=== PATIENT | female | born 1960 | race Caucasian/White ===

== ENCOUNTER 2025-01-12 18:30 | Emergency (ER) | payer BC, SELFPAY ==
[2025-01-12 19:28] VITALS: BP 178/94; PULSE 77; RESP 16; TEMP 36.9; O2SAT 96; BMI 33.6
--- NOTE | 2025-01-12 19:44 | EKG_ITS ---
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
--- NOTE | 2025-01-12 19:44 | XR_ITS ---
EXAMINATION: PA lateral chest 2 views TECHNIQUE: Upright PA lateral chest 2 views Date and time: January 12, 20252005 hours INDICATIONS: Chest pain today. FINDINGS: Normal heart size Lungs are clear. Osseous structures are demineralized IMPRESSION: No active disease
--- NOTE | 2025-01-12 19:54 | EDNOTE_ITS ---
ED Headache RME/HPI General Chief Complaint: Headache Stated Complaint: HEADACHE, DIZZINESS, FEEL FAINT Time Seen by Provider: 01/12/25 20:07 Arrival date/time: 01/12/25 18:30 RME / HPI RME / HPI Narrative: CC: Dizziness and Feeling hot Patient is 64-year-old female with a past medical history of hyperlipidemia and paroxysmal SVT who is currently taking metoprolol succinate 25 twice daily (?) who presented to the emergency room via private vehicle with a chief complaint of headaches and dizziness. Patient stated hot feeling starts at the epigastric region and flushing sensation runs up to her head causing throbbing headache that is at the temporal region bilaterally. Patient denied history of hypertension. Patient denied history of MA. Father at age 45 secondary to heart attack. Patient states blood pressure typically runs near 90/60 at home. When burning sensation occurs, associated symptom is also feeling of dizziness that worsens with changes in position. Patient is concerned for benign paroxysmal positional vertigo but no formal diagnosis has ever been done. Denied history of stroke. Denies seizure-like activity. Denied loss of consciousness or head trauma. Patient already went through menopa use. CBC CMP TSH EKG troponin Related Data Previous Rx's ?Medication ?Instructions ?Recorded naproxen 250 mg tablet 250 mg PO BID PRN pain 7 day s #14 01/12/25 tabs Allergies Allergy/AdvReac Type Severity Reaction Status Date / Time NKA Allergy Unknown Uncoded 01/12/25 18:32 Review of Systems Review of Systems Narrative Review of Systems: General appearance: NO weight change, NO fatigue, NO weakness, NO fever, NO chills, NO night sweats, No cough Skin: NO rash, NO itching, NO sores, NO moles HEENT: NO Trauma, NO nausea, NO vomiting, NO visual changes, NO blurry vision, NO double vision, NO tinnitus, NO vertigo, NO ear discharge, NO rhinorrhea, NO stuffiness, NO sneezing, NO allergy, NO epistaxis. NO Hoarseness, NO sore t hroat, NO swollen neck. Cardiac: Yes Palpitations, NO dyspnea on exertion, NO orthopnea, NO paroxysmal nocturnal dyspnea, NO edema, CHEST sensation that is described at hot feeling. Respiratory: NO Shortness of Breath, NO Wheezing, NO Cough, NO Sputum, NO hemoptysis GI:NO appetite, Yes nausea, NO vomiting, NO dysphagia, NO changes in bowel frequency, NO stool color, NO diarrhea, NO constipation, NO hemetemesis, NO hemorrhoids, NO melena, NO hematechezia, NO abdominal pain, NO jaundice Renal: NO frequency, NO hesitancy, NO urgency, NO hematuria, NO nocturia, NO incontinence MSK: NO muscle weakness, NO gout, NO arthritis, NO muscle stiffness Neuro: NO headaches, NO tremors, NO weakness, NO paralysis, NO seizures, NO loss of consciousness, NO numbness. Hem: NO anemia, NO easy bruising/bleeding, NO petechiae, NO purpura Endo: NO heat/cold intolerance, NO excessive sweating, NO polyuria, NO polydipsia, NO polyphagia, NO thyroid problems, NO diabetes Pysch: NO mood, NO anxiety, NO depression ED Exam Narrative Physical exam: General Appearance: Alert & Oriented X3, well-nourished female who is lying in bed in no distress HEENT: Skull symmetrical and atraumatic. Conjunctivae pink and moist. Pupils equal, round, reactive to light and accommodation (PERRL). External ear without lesion or discharge. Left ear, tympanic membrane noted to have increased opacity , Straight, nares patient, mucosa pink, no discharge. Cardio: Normal Rate and Rhythm with S1 and S2 heart sounds. No murmurs or extra heart sounds auscultated. No bruits on carotid auscultation. No peripheral edema or cyanosis. Lungs: Symmetric with good expansion. Chest and back non-tender. Breath sounds vesicular without crackles, wheezing or rhonchi Abdomen: Non-tender, Non-distended, Normal Reactive Bowel Sounds Neuro: Alert, cooperative, oriented to person, place, and time. Speech clear. CN grossly intact. Upper motor strength 5/5 and Lower motor strength 5/5. Sensation intact. Course Course Course Narrative: CBC CMP TSH Troponin EKG Orthostatic vitals Quality Measures none Orders Category Date Time Status [employer] Q4H START 00 Care 01/12/25 19:45 Active EKG (ED ONLY) *Do not use* NOW Care 01/12/25 19:44 Completed Orthostatic Vitals X1 Care 01/12/25 19:45 Active EKG (ED Only) Stat Exams 01/12/25 19:44 Draft XR chest 2V Stat Exams 01/12/25 19:44 Taken Alcohol, Urine Stat Lab 01/12/25 20:11 Completed CBC Stat Lab 01/12/25 19:50 Completed Comprehensive Metabolic Panel Stat Lab 01/12/25 19:50 Completed Drug Screen,Urine Stat Lab 01/12/25 20:11 Completed Magnesium Stat Lab 01/12/25 19:50 Completed Partial Thromboplastin Time Stat Lab 01/12/25 19:50 Completed Prothrombin Time with INR Stat Lab 01/12/25 19:50 Completed TSH [Thyroid Stimulating Hormone] Stat Lab 01/12/25 19:50 Completed Troponin I Stat Lab 01/12/25 19:50 Completed Urinalysis, C/S if Indicated Stat Lab 01/12/25 20:11 Completed Ketorolac Inj [Toradol Inj] Med 01/12/25 19:47 Discontinued 30 mg IM X1 ONE Losartan [Cozaar] Med 01/12/25 19:50 Discontinued 25 mg PO X1 ONE Ondansetron Odt [Zofran Odt] Med 01/12/25 19:46 Discontinued 4 mg PO X1 ONE Vital Signs Vital signs: Vital Signs Temperature 98.4 F 01/12/25 19:28 Pulse Rate 77 01/12/25 19:28 Respiratory Rate 16 01/12/25 19:28 Blood Pressure 178/94 H 01/12/25 19:28 Pulse Oximetry (%) 96 01/12/25 19:28 Oxygen Delivery Method Room Air 01/12/25 19:28 Headache Patient data External records reviewed:: [facility] previous records Clinical information provided by:: patient Social determinants that could affect healthcare access:: housing Patient has the following chronic illnesses:: hx of STV and HLD How is presenting disease/condition affected by chronic disease/condition?: uneffected by Evaluation data The following diagnostics were reviewed and interpreted by me:: lab results, radiology exam(s) and EKG tracing(s) Lab and/or radiology exams considered but not ordered:: None Interpretation Summary: Patient presented with symptoms of flushing that starts at epigastric region and moves up to chest and head who stated these episodes come and go with changes in position, including sitting up and laying down. Orthostatic negative. Mild Leukocytosis, likely reactive as UA is negative and chest x-ray is unremarkable. EKG, no ST elevation. Troponin negative. Concern for vasovagal syncope. Medications / Prescriptions Medications or Prescriptions considered but not ordered:: None Medication administrations:: Medication Administration History Discontinued Medications Ketorolac Tromethamine (Ketorolac Inj 30 Mg/Ml Vial) 30 mg IM X1 ONE Stop: 01/12/25 19:48 Last Admin: 01/12/25 19:57 Dose: 30 mg Documented By: SOPHIA Losartan Potassium (Losartan Potassium 25 Mg Tablet) 25 mg PO X1 ONE Stop: 01/12/25 19:51 Last Admin: 01/12/25 19:58 Dose: Not Given Documented By: SOPHIA Non-Admin Reason: Per Protocol Comments: PT BP 125/77 PULSE 66 AT THIS TIME, PROVIDER MADE AWARE Ondansetron HCl (Ondansetron Odt 4 Mg Tabrap) 4 mg PO X1 ONE; Protocol Stop: 01/12/25 19:47 Last Admin: 01/12/25 19:56 Dose: 4 mg Documented By: SOPHIA same as above Consultations Consultation(s) initiated? (list below): No Diagnosis Differential diagnosis headache: tension headache and other (HTN vs ACS vs vasovagal syncope) Most likely diagnosis given after review of the tests above:: Patient presented with symptoms of flushing that starts at epigastric region and moves up to chest and head who stated these episodes come and go with changes in position, including sitting up and laying down. Orthostatic negative. Mild Leukocytosis, likely reactive as UA is negative and chest x-ray is unremarkable. EKG, no ST elevation. Troponin negative. Given labs and ekg likely diagnosis for vasovagal syncope, will need to follow up with industrial garage servicer for further workup, includign a holter monitor. - The patient's plan was discussed with attending Dr. Corey Muñoz MD PGY2 Internal Medicine Admission Indicated Admission indicated?: not indicated Admission Request Was there a request for admission?: No Disposition Plan Disposition Plan: Discharge Discharge Attestation Discharge Attestation: The patient and all family members were given an opportunity to ask questions and understood the discharge instructions. Discharge instructions specifically effects, indications for sooner follow up or return to the emergency department, and the expected course of current diagnosis. Patient condition: Stable Critical Care Time Critical Care Time Critical Care Time: No Discharge Plan Plan Patient Disposition: HOME (Self Care) Patient condition on transfer: Stable Health Concerns: Instructions: -Concern for vasovagal syncope given metoprolol succinate use as home medication, please follow up with industrial garage servicer at [facility] for possible holter monitor or stress test -Please follow up with your primary care provider within one week of discharge -If your symptoms worsen,please seek immediate medical attention and return to your nearest emergency room -If you do not have a primary care provider, you may follow up at the [facility] at [facility] [address], [place] [address], Prescriptions/Referrals Prescriptions/Med Rec: New naproxen 250 mg tablet 250 mg PO BID PRN (Reason: pain) 7 Days Qty: 14 0RF Referrals: No Primary/Family,Physician [Primary Care Provider] - In 1 week Problem List Clinical Impression: Vaso-vagal reaction Patient/Caregiver Discharge Instructions Education Materials: Causes of Syncope, BPPV Print Language: Uzbek Stand Alone Forms: June Award Info., Patient Portal Info Letter
[2025-01-12] MEDS: ONDANSETRON ODT 4 MG TABRAP PO (19:56)
[2025-01-12] MEDS: KETOROLAC INJ 30 MG/ML VIAL IM (19:57)
[2025-01-12 19:58] VITALS: BP 125/77; BP 131/80; BP 134/80; PULSE 66; PULSE 72; PULSE 75
[2025-01-12 19:59] LABS: Basophils # (Auto) 0.0 Thou/mm3 (0.0-0.2); Basophils % (Auto) 0 % (0-2.5); Eosinophils # (Auto) 0.0 Thou/mm3 (0.0-0.5); Eosinophils % (Auto) 0 % (0-10); Hematocrit 37.5 % (36.0-46.0); Hemoglobin 11.6 g/dL (12.0-16.0); Immature Granulocytes Auto 0.06 Thou/mm3 (0.00-0.00); Lymphocytes # (Auto) 2.2 Thou/mm3 (1.0-4.8); Lymphocytes % (Auto) 16 % (10-50); Mean Corpuscular HGB Conc 30.9 g/dl (31.0-37.0); Mean Corpuscular Hemoglobin 23.6 pg (25.0-35.0); Mean Corpuscular Volume 76 fL (80-100); Monocytes # (Auto) 0.7 Thou/mm3 (0.0-0.8); Monocytes % (Auto) 6 % (0-12); Neutrophils # (Auto) 10.1 Thou/mm3 (1.8-7.7); Neutrophils % (Auto) 77 % (37-80); Nucleated Red Blood Cell # 0.00 Thou/mm3 (0.00-0.00); Nucleated Red Blood Cell % 0 /100 WBC (0); Platelet Count 360 Thou/mm3 (140-440); RDW Standard Deviation 45.1 fL (36.4-46.3); Red Blood Count 4.91 Miln/mm3 (4.00-5.20); White Blood Count 13.1 Thou/mm3 (3.6-11.0)
[2025-01-12 20:16] LABS: Collection Type, Urine Clean Catch
[2025-01-12 20:17] LABS: INR 1.0 (0.9-1.3); Partial Thromboplastin Time 24.8 Seconds (22.0-36.0); Prothrombin Time 10.4 Seconds (9.0-12.2)
[2025-01-12 20:30] LABS: Alanine Aminotransferase 21 U/L (10-49); Albumin, Serum 4.7 gm/dL (3.4-4.8); Albumin/Globulin Ratio 2.0 (1.2-2.2); Alkaline Phosphatase 107 U/L (46-116); Anion Gap 11 (7-16); Aspartate Amino Transferase 24 U/L (0-34); BUN/Creatinine Ratio 19 Ratio (12-20); Bilirubin,Total 0.4 mg/dL (0.3-1.2); Blood Urea Nitrogen 17 mg/dL (9-23); Calcium 10.0 mg/dL (8.3-10.6); Calcium (Corrected) 10.0 mg/dL (8.5-10.1); Carbon Dioxide 24.8 mMol/L (20.0-31.0); Chloride 105 mMol/L (98-107); Creatinine (Component) 0.9 mg/dL (0.6-1.3); Estimated Creatinine Clearance 74.7 mL/min (>60); Globulin 2.3 gm/dL (2.3-3.5); Glucose 133 mg/dL (74-106); Magnesium 2.0 mg/dL (1.6-2.6); Osmolality,Calculated 284 (275-295); Potassium 4.3 mMol/L (3.4-5.1); Sodium 141 mMol/L (136-145); Thyroid Stimulating Hormone 2.08 uIU/mL (0.55-4.78); Total Protein 7.0 gm/dL (5.7-8.2); Troponin I < 0.002 ng/mL (0.0-0.045); eGFR > 60 See Note
[2025-01-12 20:31] LABS: Bilirubin,Urine Negative (Negative); Blood,Urine Negative (Negative); Clarity,Urine Turbid (Clear/Hazy); Color,Urine Yellow (Lt Yel-Yel); Culture Indicated,Urine Not Indicated; Glucose, Urine Negative (Negative); Ketones,Urine Trace (Negative); Leukocyte Esterase,Urine Negative (Negative); Nitrite,Urine Negative (Negative); PH,Urine 6.0 (5.0-7.0); Protein,Urine 1+ (Neg - Trace); RBC,Urine 9 /hpf (0-3); Specific Gravity,Urine 1.040 (1.001-1.035); Squamous Epithelial Cell,Urine 4 /hpf (0-5); Urobilinogen,Urine Negative mg/dL (0.0-1.0); WBC,Urine 3 /hpf (0-5)
[2025-01-12 20:49] LABS: Alcohol, Urine Negative (Negative); Amphetamine/Methamp Scrn,U Negative (Negative); Barbiturate Screen,Urine Negative (Negative); Benzodiazepines Screen,Urine Negative (Negative); Benzoylecgonine Screen, Ur Negative (Negative); Fentanyl Screen,Urine Negative (Negative); Opiate Screen,Urine Negative (Negative); THC Screen,Urine Negative (Negative)
== END 2025-01-12 21:24 | disposition home or self-care (01) ==
PROVIDERS: Emergency Provider Emergency Medicine
DX: R55 Syncope and collapse (principal); E78.5 Hyperlipidemia, unspecified; R51.9 Headache, unspecified
CPT/HCPCS: 36415; 71046; 80053; 80307; 80320; 81001; 83735; 84443; 84484; 85025; 85610; 85730; 93005; 96372; 99283; J1885; Q0162; G0480